=== PATIENT | female | born 1975 | race Caucasian/White ===

== ENCOUNTER 2017-12-27 09:17 | Emergency (ER) | payer OTHER ==
[2017-12-27 09:28] VITALS: Ht 162.6 cm
[2017-12-27 10:59] VITALS: BP 121/81
== END 2017-12-27 10:59 | disposition home or self-care (01) ==
LOC: ED 09:17
DX: T78.40XA Allergy, unspecified, initial encounter (principal); X58.XXXA Exposure to other specified factors, initial encounter